=== PATIENT | female | born 1990 | race Caucasian/White ===

== ENCOUNTER 2016-10-11 22:58 | Emergency (ER) | payer OTHER ==
--- NOTE | 2016-10-12 00:58 | ED NURSING NOTES ---
Clinical Report - Nurses [facility] [address] [place] [address] 10/11/2016 22:59 Patient: ARI SANTANA TRIAGE Triage time 23:Oct 11 2016. Acuity: LEVEL 3. Chief Complaint: RIGHT LOWER TOOTHACHE. Alert. MARY JANE COMA SCORE: [place] Coma Scale: 15- eyes open spontaneously (4); best verbal response- oriented x 4 (5); best motor response- obeys commands (6). --23:22 Leroy David R.N. 23:06 10/11/16. BP: 123/82. HR: 86. RR: 16. O2 saturation: 97% on room air. Temp: 98.2 F (oral). Pain level now: 9/10. Additional comments: Facial Pain. --23:22 Leroy David R.N. Weight: 63.5 kg stated. Height/Length: 65 inches Per Patient. BMI: 23.3. --23:08 Leroy David R.N. Medications Wellbutrin Oral. --23:12 Leroy David R.N. Levothyroxine Sodium Oral (Not taking this Rx right now and hasn't taken any for weeks. Pt states that her thyroid function is normal.). --23:13 Leroy David R.N. Allergies None. --23:15 Leroy David R.N. Medication/allergy information source: the patient and patient's family. --23:22 Leroy David R.N. History Arrived by private vehicle. Historian: spouse and patient. Accompanied by spouse. Primary physician (Jean-Paul Griggs [facility]). ( (R) Facial Pain from an infected tooth in the Right Lower Jaw.). Onset. (Tooth pain started about one week ago according to her .). She has had moderate right-sided facial pain. 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 PAST MEDICAL HX: Last normal menstrual period was 2 weeks ago. Denies current . SOCIAL HX: Never smoker. Alcohol use; consumes one glass of wine weekly. No drug use. No infectious disease exposure. ABUSE ASSESSMENT: No report of abuse. FALL RISK ASSESSMENT: Fall risk assessment completed. No fall risk identified. NUTRITIONAL RISK ASSESSMENT: The nutritional risk assessment revealed no deficiencies. FUNCTIONAL ASSESSMENT: Functional assessment: no impairments noted. LEARNING NEEDS ASSESSMENT: The learning needs assessment revealed no barriers. SKIN INTEGRITY ASSESSMENT: Skin integrity risk assessment completed. No skin integrity risk identified. --23:22 Leroy David R.N. PROBLEMS: Sick Contact. Head Injury. Headache. Migraine Headache. --23:15 Leroy David R.N. ADDITIONAL SURGERIES: Appendectomy. --23:15 Leroy David R.N. Interventions ID band on patient. To treatment room. --23:22 Leroy David R.N. PHYSICAL ASSESSMENT Ambulatory to room. GENERAL / NEURO / PSYCH: Appears in pain. The patient is disoriented (Lethargic affect). HEENT: ( (R) Facial Pain). Mucous membranes are pink. RESPIRATORY: Respirations not labored. CVS: Capillary refill less than 2 seconds. SKIN: Skin is warm and dry. Normal skin turgor. --23:24 Leroy David R.N. NURSING PROGRESS NOTES Patient gowned. Reassurance given to the patient and patient's family. Patient identifiers checked. Call light placed in reach. Side rails up x 2. Bed placed in lowest position. Brakes of bed on. Patient ready for evaluation- chart flagged and ED physician notified. --23:24 Leroy David R.N. DISPOSITION / DISCHARGE Condition at departure: stable. No learning barriers present. Discharge instructions provided and reviewed with the patient. Reviewed medication(s) side effects, precautions, dosing and course information. Prescription(s) given to the parent. Patient verbalized understanding. Written instructions provided in Japanese. The patient was discharged by the physician. She was discharged home and accompanied by spouse. She left the Emergency Department ambulatory and via private vehicle. Spouse driving. --01:06 Sheriff Diaz R.N. 01:10/12/16. BP: 105/69. HR: 76. RR: 18. O2 saturation: 99%. Temp: 97.7 F. --01:06 Sheriff Diaz R.N. Locked/Released at 10/12/2016 1:07 by Sheriff Diza R.N.
--- NOTE | 2016-10-12 00:58 | ED NURSING NOTES ---
Clinical Report - Nurses [facility] [address] [place] [address] 10/11/2016 22:59 Patient: ARI SANTANA TRIAGE Triage time 23:Oct 11 2016. Acuity: LEVEL 3. Chief Complaint: RIGHT LOWER TOOTHACHE. Alert. MARY JANE COMA SCORE: [place] Coma Scale: 15- eyes open spontaneously (4); best verbal response- oriented x 4 (5); best motor response- obeys commands (6). --23:22 Leroy David R.N. 23:06 10/11/16. BP: 123/82. HR: 86. RR: 16. O2 saturation: 97% on room air. Temp: 98.2 F (oral). Pain level now: 9/10. Additional comments: Facial Pain. --23:22 Leroy David R.N. Weight: 63.5 kg stated. Height/Length: 65 inches Per Patient. BMI: 23.3. --23:08 Leroy David R.N. Medications Wellbutrin Oral. --23:12 Leroy David R.N. Levothyroxine Sodium Oral (Not taking this Rx right now and hasn't taken any for weeks. Pt states that her thyroid function is normal.). --23:13 Leroy David R.N. Allergies None. --23:15 Leroy David R.N. Medication/allergy information source: the patient and patient's family. --23:22 Leroy David R.N. History Arrived by private vehicle. Historian: spouse and patient. Accompanied by spouse. Primary physician (Jean-Paul Griggs [facility]). ( (R) Facial Pain from an infected tooth in the Right Lower Jaw.). Onset. (Tooth pain started about one week ago according to her .). She has had moderate right-sided facial pain. 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 PAST MEDICAL HX: Last normal menstrual period was 2 weeks ago. Denies current . SOCIAL HX: Never smoker. Alcohol use; consumes one glass of wine weekly. No drug use. No infectious disease exposure. ABUSE ASSESSMENT: No report of abuse. FALL RISK ASSESSMENT: Fall risk assessment completed. No fall risk identified. NUTRITIONAL RISK ASSESSMENT: The nutritional risk assessment revealed no deficiencies. FUNCTIONAL ASSESSMENT: Functional assessment: no impairments noted. LEARNING NEEDS ASSESSMENT: The learning needs assessment revealed no barriers. SKIN INTEGRITY ASSESSMENT: Skin integrity risk assessment completed. No skin integrity risk identified. --23:22 Leroy David R.N. PROBLEMS: Sick Contact. Head Injury. Headache. Migraine Headache. --23:15 Leroy David R.N. ADDITIONAL SURGERIES: Appendectomy. --23:15 Leroy David R.N. Interventions ID band on patient. To treatment room. --23:22 Leroy David R.N. PHYSICAL ASSESSMENT Ambulatory to room. GENERAL / NEURO / PSYCH: Appears in pain. The patient is disoriented (Lethargic affect). HEENT: ( (R) Facial Pain). Mucous membranes are pink. RESPIRATORY: Respirations not labored. CVS: Capillary refill less than 2 seconds. SKIN: Skin is warm and dry. Normal skin turgor. --23:24 Leroy David R.N. NURSING PROGRESS NOTES Patient gowned. Reassurance given to the patient and patient's family. Patient identifiers checked. Call light placed in reach. Side rails up x 2. Bed placed in lowest position. Brakes of bed on. Patient ready for evaluation- chart flagged and ED physician notified. --23:24 Leroy David R.N. DISPOSITION / DISCHARGE Condition at departure: stable. No learning barriers present. Discharge instructions provided and reviewed with the patient. Reviewed medication(s) side effects, precautions, dosing and course information. Prescription(s) given to the parent. Patient verbalized understanding. Written instructions provided in Korean. The patient was discharged by the physician. She was discharged home and accompanied by spouse. She left the Emergency Department ambulatory and via private vehicle. Spouse driving. --01:06 Sheriff Diaz R.N. 01:10/12/16. BP: 105/69. HR: 76. RR: 18. O2 saturation: 99%. Temp: 97.7 F. --01:06 Sheriff Diaz R.N. Locked/Released at 10/12/2016 1:07 by Sheriff Diaz R.N.
--- NOTE | 2016-10-12 00:58 | ED CLINICAL REPORT ---
Clinical Report - Physicians/Mid Levels [facility] [address] [place] [address] 10/11/2016 22:59 Patient: ARI SANTANA Time Seen: 23:30; initial patient contact. Arrived- By private vehicle. Historian- patient. HISTORY OF PRESENT ILLNESS Chief Complaint: DENTAL PAIN. This started about 1 week ago and is still present (persistent). It was gradual in onset. Pain described as moderate. The patient has had toothache, jaw pain and facial pain. No swollen jaw or face. Similar symptoms previously: None. Recent medical care: Not recently seen/assessed. REVIEW OF SYSTEMS No fever, difficulty breathing, nausea, skin rash or vomiting. All systems otherwise negative, except as recorded above. PAST HISTORY Sick Contact. Head Injury. Headache. Migraine Headache. ADDITIONAL SURGERIES: Appendectomy. SOCIAL HISTORY Never smoker. Occasional alcohol use. No drug use. ADDITIONAL NOTES The nursing notes have been reviewed. PHYSICAL EXAM Vital Signs: 10/11/2016 23:06 BP: 123/82. HR: 86. RR: 16. O2 saturation: 97%. Temp: 98.2 F. Pain level now: 9/10. Have been reviewed as normal. Appearance: Patient in mild distress. Head: Normal external inspection. ENT: Moderate dental tenderness of a single tooth (lower right second premolar). Pharynx normal. Lips normal. Gums normal. No trismus present. No dental decay. Neck: No adenopathy. Neuro: Oriented X 3. PROGRESS AND PROCEDURES Dental Nerve Block: Time: 00:57. Per protocol, time-out completed immediately before the procedure. Inferior Alveolar Block. Procedure performed on the right side. Landmarks were identified. Topical anesthetic applied. Total volume of 5 mL 2% Lidocaine and 0.5% Marcaine infiltrated using a 25-gauge needle. Patient cooperative during procedure. No complications encountered. Excellent anesthesia achieved. Procedure repeated on opposite side. Course of Care: 04:59. Much better after dental block. Evaluation after repeat exam. Disposition: Discharged home in good and improved condition. Condition: good. CLINICAL IMPRESSION Moderate dental pain. INSTRUCTIONS Apply ice for 20 minutes four times a day until better. Don't apply ice directly to skin. Prescription Medications: Hydrocodone/APAP 5mg / 325mg: take 1 orally every 6 hours as needed for pain. Dispense fifteen (15). No refill. Diclofenac 50 mg tablets: take 1 tablet orally every 8 hours as needed for pain. Dispense thirty (30). No refill. Follow-up: Follow up with your doctor in about three days. Call for an appointment. Screening today revealed the patient's blood pressure to be in the pre-hypertensive range. The patient should follow up with a primary care provider for blood pressure management. (Electronically signed by Junito Guerrero Dr. 10/12/2016 4:59)
--- NOTE | 2016-10-12 00:58 | ED CLINICAL REPORT ---
Clinical Report - Physicians/Mid Levels [facility] [address] [place] [address] 10/11/2016 22:59 Patient: ARI SANTANA Time Seen: 23:30; initial patient contact. Arrived- By private vehicle. Historian- patient. HISTORY OF PRESENT ILLNESS Chief Complaint: DENTAL PAIN. This started about 1 week ago and is still present (persistent). It was gradual in onset. Pain described as moderate. The patient has had toothache, jaw pain and facial pain. No swollen jaw or face. Similar symptoms previously: None. Recent medical care: Not recently seen/assessed. REVIEW OF SYSTEMS No fever, difficulty breathing, nausea, skin rash or vomiting. All systems otherwise negative, except as recorded above. PAST HISTORY Sick Contact. Head Injury. Headache. Migraine Headache. ADDITIONAL SURGERIES: Appendectomy. SOCIAL HISTORY Never smoker. Occasional alcohol use. No drug use. ADDITIONAL NOTES The nursing notes have been reviewed. PHYSICAL EXAM Vital Signs: 10/11/2016 23:06 BP: 123/82. HR: 86. RR: 16. O2 saturation: 97%. Temp: 98.2 F. Pain level now: 9/10. Have been reviewed as normal. Appearance: Patient in mild distress. Head: Normal external inspection. ENT: Moderate dental tenderness of a single tooth (lower right second premolar). Pharynx normal. Lips normal. Gums normal. No trismus present. No dental decay. Neck: No adenopathy. Neuro: Oriented X 3. PROGRESS AND PROCEDURES Dental Nerve Block: Time: 00:57. Per protocol, time-out completed immediately before the procedure. Inferior Alveolar Block. Procedure performed on the right side. Landmarks were identified. Topical anesthetic applied. Total volume of 5 mL 2% Lidocaine and 0.5% Marcaine infiltrated using a 25-gauge needle. Patient cooperative during procedure. No complications encountered. Excellent anesthesia achieved. Procedure repeated on opposite side. Course of Care: 04:59. Much better after dental block. Evaluation after repeat exam. Disposition: Discharged home in good and improved condition. Condition: good. CLINICAL IMPRESSION Moderate dental pain. INSTRUCTIONS Apply ice for 20 minutes four times a day until better. Don't apply ice directly to skin. Prescription Medications: Hydrocodone/APAP 5mg / 325mg: take 1 orally every 6 hours as needed for pain. Dispense fifteen (15). No refill. Diclofenac 50 mg tablets: take 1 tablet orally every 8 hours as needed for pain. Dispense thirty (30). No refill. Follow-up: Follow up with your doctor in about three days. Call for an appointment. Screening today revealed the patient's blood pressure to be in the pre-hypertensive range. The patient should follow up with a primary care provider for blood pressure management. (Electronically signed by Junito Guerrero Dr. 10/12/2016 4:59)
--- NOTE | 2016-10-12 04:59 | ED MAR SUMMARY ---
..... Medication Administration Record [facility] [address] [place], [place] [id number] Patient: ARI SANTANA Visit ID: [id number] 26y, F Weight: 63.5 kg Height/Length: 65 in BMI: 23.3 ALLERGIES: None
--- NOTE | 2016-10-12 04:59 | ED MED RECONCILIATION SUMMARY ---
Patient: ARI SANTANA Medication Reconciliation Report [facility] VisitID: [id number] [address] [place] [address] 26y, F Registration Date/Time: 10/11/2016 Weight: 63.5 kg Height/Length: 65 in. BMI: 23.3 ALLERGIES: None The patient's Home Medications are listed below: THE FOLLOWING MEDICATIONS NEED TO BE RECONCILED: Levothyroxine Sodium Oral, Not taking this Rx right now and hasn't taken any for weeks. Pt states that her thyroid function is normal. Wellbutrin Oral The source(s) of the original Home Medication information: patient patient's family member The following Medications were given to the patient in the Emergency Department: None. The following Medications were prescribed to the patient: Hydrocodone/APAP 5mg / 325mg: take 1 orally every 6 hours as needed for pain. Dispense fifteen (15). No refill. -- Junito Guerrero Dr. Diclofenac 50 mg tablets: take 1 tablet orally every 8 hours as needed for pain. Dispense thirty (30). No refill. -- Junito Guerrero Dr.
--- NOTE | 2016-10-12 04:59 | ED DISCHARGE INSTRUCTIONS ---
Patient: ARI SANTANA General Instructions [facility] VisitID: [id number] [place] [address] 26y, F Registration Date/Time: 10/11/2016 Moderate dental pain. INSTRUCTIONS Apply ice for 20 minutes four times a day until better. Don't apply ice directly to skin. Prescription Medications: Hydrocodone/APAP 5mg / 325mg: take 1 orally every 6 hours as needed for pain. Dispense fifteen (15). No refill. Diclofenac 50 mg tablets: take 1 tablet orally every 8 hours as needed for pain. Dispense thirty (30). No refill. Follow-up: Follow up with your doctor in about three days. Call for an appointment. Screening today revealed the patient's blood pressure to be in the pre-hypertensive range. The patient should follow up with a primary care provider for blood pressure management. ADDITIONAL INFORMATION Dental Pain A crack or cavity in the tooth, which exposes the sensitive inner area of the tooth can cause tooth pain. An infection in the gum or the root of the tooth can cause pain and swelling. The pain is often made worse by drinking hot or cold fluids, or biting on hard foods. Pain may spread from the tooth to the ear or jaw on the same side. Home Care: Avoid hot and cold foods and liquids since your tooth may be sensitive to temperature changes. If your tooth is chipped or cracked, or if there is a large open cavity, apply OIL OF CLOVES (available qpyx-ape-ycadelm in drug stores) directly to the tooth to reduce pain. Some pharmacies carry an conx-iwb-certkoj "toothache kit." This contains a paste, which can be applied over the exposed tooth to decrease sensitivity. A cold pack on your jaw over the sore area may help reduce pain. You may use acetaminophen (Tylenol) or ibuprofen (Motrin, Advil) to control pain, unless another medicine was prescribed. [ NOTE: If you have chronic liver or kidney disease or ever had a stomach ulcer or GI bleeding, talk with your doctor before using these medicines.] If you have signs of an infection, an antibiotic will be given. Take it as directed. Follow-Up as directed with a dentist. Your pain may go away with the treatment given. However, only a dentist can fully evaluate and treat the cause and prevent the pain from coming back again. TOOTHACHE IS A SIGN OF DISEASE IN YOUR TOOTH AND SHOULD BE EXAMINED AND TREATED BY A DENTIST. Get Prompt Medical Attention if any of the following occur: Your face becomes swollen or red Pain worsens or spreads to the neck Fever over 100.4 F (38.0 C) Unusual drowsiness; headache or stiff neck; weakness or fainting Pus drains from the tooth Difficulty swallowing or breathing Hydrocodone Bitartrate, Acetaminophen Oral tablet What is this medicine? ACETAMINOPHEN; HYDROCODONE (a set a VICK stan fen; libby droe KOE done) is a pain reliever. It is used to treat mild to moderate pain. How should I use this medicine? Take this medicine by mouth. Swallow it with a full glass of water. Follow the directions on the prescription label. If the medicine upsets your stomach, take the medicine with food or milk. Do not take more than you are told to take. Talk to your etl developer regarding the use of this medicine in children. This medicine is not approved for use in children. What side effects may I notice from receiving this medicine? Side effects that you should report to your doctor or health body care manager as soon as possible: allergic reactions like skin rash, itching or hives, swelling of the face, lips, or tongue breathing problems confusion feeling faint or lightheaded, falls stomach pain yellowing of the eyes or skin Side effects that usually do not require medical attention (report to your doctor or health body care manager if they continue or are bothersome): nausea, vomiting stomach upset What may interact with this medicine? alcohol antihistamines isoniazid medicines for depression, anxiety, or psychotic disturbances medicines for sleep muscle relaxants naltrexone narcotic medicines (opiates) for pain phenobarbital ritonavir tramadol What if I miss a dose? If you miss a dose, take it as soon as you can. If it is almost time for your next dose, take only that dose. Do not take double or extra doses. Where should I keep my medicine? Keep out of the reach of children. This medicine can be abused. Keep your medicine in a safe place to protect it from theft. Do not share this medicine with anyone. Selling or giving away this medicine is dangerous and against the law. Store at room temperature between 15 and 30 degrees C (59 and 86 degrees F). Protect from light. Keep container tightly closed. Throw away any unused medicine after the expiration date. Discard unused medicine and used packaging carefully. Pets and children can be harmed if they find used or lost packages. What should I tell my health care provider before I take this medicine? They need to know if you have any of these conditions: brain tumor Crohn's disease, inflammatory bowel disease, or ulcerative colitis drink more than 3 alcohol-containing drinks per day drug abuse or addiction head injury heart or circulation problems kidney disease or problems going to the bathroom liver disease lung disease, asthma, or breathing problems an unusual or allergic reaction to acetaminophen, hydrocodone, other opioid analgesics, other medicines, foods, dyes, or preservatives or trying to get breast-feeding What should I watch for while using this medicine? Tell your doctor or health body care manager if your pain does not go away, if it gets worse, or if you have new or a different type of pain. You may develop tolerance to the medicine. Tolerance means that you will need a higher dose of the medicine for pain relief. Tolerance is normal and is expected if you take the medicine for a long time. Do not suddenly stop taking your medicine because you may develop a severe reaction. Your body becomes used to the medicine. This does NOT mean you are addicted. Addiction is a behavior related to getting and using a drug for a non-medical reason. If you have pain, you have a medical reason to take pain medicine. Your doctor will tell you how much medicine to take. If your doctor wants you to stop the medicine, the dose will be slowly lowered over time to avoid any side effects. You may get drowsy or dizzy when you first start taking the medicine or change doses. Do not drive, use machinery, or do anything that may be dangerous until you know how the medicine affects you. Stand or sit up slowly. There are different types of narcotic medicines (opiates) for pain. If you take more than one type at the same time, you may have more side effects. Give your health care provider a list of all medicines you use. Your doctor will tell you how much medicine to take. Do not take more medicine than directed. Call emergency for help if you have problems breathing. The medicine will cause constipation. Try to have a bowel movement at least every 2 to 3 days. If you do not have a bowel movement for 3 days, call your doctor or health body care manager. Too much acetaminophen can be very dangerous. Do not take Tylenol (acetaminophen) or medicines that contain acetaminophen with this medicine. Many non-prescription medicines contain acetaminophen. Always read the labels carefully. You have been given the following additional information: Dental Pain Hydrocodone Bitartrate, Acetaminophen Oral tablet (Electronically signed by Junito Guerrero Dr. 10/12/2016 4:59)
--- NOTE | 2016-10-12 04:59 | ED MAR SUMMARY ---
..... Medication Administration Record [facility] [address] [place], [place] [id number] Patient: ARI SANTANA Visit ID: [id number] 26y, F Weight: 63.5 kg Height/Length: 65 in BMI: 23.3 ALLERGIES: None
--- NOTE | 2016-10-12 04:59 | ED MED RECONCILIATION SUMMARY ---
Patient: ARI SANTANA Medication Reconciliation Report [facility] VisitID: [id number] [address] [place] [address] 26y, F Registration Date/Time: 10/11/2016 Weight: 63.5 kg Height/Length: 65 in. BMI: 23.3 ALLERGIES: None The patient's Home Medications are listed below: THE FOLLOWING MEDICATIONS NEED TO BE RECONCILED: Levothyroxine Sodium Oral, Not taking this Rx right now and hasn't taken any for weeks. Pt states that her thyroid function is normal. Wellbutrin Oral The source(s) of the original Home Medication information: patient patient's family member The following Medications were given to the patient in the Emergency Department: None. The following Medications were prescribed to the patient: Hydrocodone/APAP 5mg / 325mg: take 1 orally every 6 hours as needed for pain. Dispense fifteen (15). No refill. -- Junito Guerrero Dr. Diclofenac 50 mg tablets: take 1 tablet orally every 8 hours as needed for pain. Dispense thirty (30). No refill. -- Junito Guerrero Dr.
--- NOTE | 2016-10-12 04:59 | ED DISCHARGE INSTRUCTIONS ---
Patient: ARI SANTANA General Instructions [facility] VisitID: [id number] [place] [address] 26y, F Registration Date/Time: 10/11/2016 Moderate dental pain. INSTRUCTIONS Apply ice for 20 minutes four times a day until better. Don't apply ice directly to skin. Prescription Medications: Hydrocodone/APAP 5mg / 325mg: take 1 orally every 6 hours as needed for pain. Dispense fifteen (15). No refill. Diclofenac 50 mg tablets: take 1 tablet orally every 8 hours as needed for pain. Dispense thirty (30). No refill. Follow-up: Follow up with your doctor in about three days. Call for an appointment. Screening today revealed the patient's blood pressure to be in the pre-hypertensive range. The patient should follow up with a primary care provider for blood pressure management. ADDITIONAL INFORMATION Dental Pain A crack or cavity in the tooth, which exposes the sensitive inner area of the tooth can cause tooth pain. An infection in the gum or the root of the tooth can cause pain and swelling. The pain is often made worse by drinking hot or cold fluids, or biting on hard foods. Pain may spread from the tooth to the ear or jaw on the same side. Home Care: Avoid hot and cold foods and liquids since your tooth may be sensitive to temperature changes. If your tooth is chipped or cracked, or if there is a large open cavity, apply OIL OF CLOVES (available jans-uwc-tywdstz in drug stores) directly to the tooth to reduce pain. Some pharmacies carry an dtng-ctk-apahxgf "toothache kit." This contains a paste, which can be applied over the exposed tooth to decrease sensitivity. A cold pack on your jaw over the sore area may help reduce pain. You may use acetaminophen (Tylenol) or ibuprofen (Motrin, Advil) to control pain, unless another medicine was prescribed. [ NOTE: If you have chronic liver or kidney disease or ever had a stomach ulcer or GI bleeding, talk with your doctor before using these medicines.] If you have signs of an infection, an antibiotic will be given. Take it as directed. Follow-Up as directed with a dentist. Your pain may go away with the treatment given. However, only a dentist can fully evaluate and treat the cause and prevent the pain from coming back again. TOOTHACHE IS A SIGN OF DISEASE IN YOUR TOOTH AND SHOULD BE EXAMINED AND TREATED BY A DENTIST. Get Prompt Medical Attention if any of the following occur: Your face becomes swollen or red Pain worsens or spreads to the neck Fever over 100.4 F (38.0 C) Unusual drowsiness; headache or stiff neck; weakness or fainting Pus drains from the tooth Difficulty swallowing or breathing Hydrocodone Bitartrate, Acetaminophen Oral tablet What is this medicine? ACETAMINOPHEN; HYDROCODONE (a set a VICK stan fen; libby droe KOE done) is a pain reliever. It is used to treat mild to moderate pain. How should I use this medicine? Take this medicine by mouth. Swallow it with a full glass of water. Follow the directions on the prescription label. If the medicine upsets your stomach, take the medicine with food or milk. Do not take more than you are told to take. Talk to your tipping machine operator automatic regarding the use of this medicine in children. This medicine is not approved for use in children. What side effects may I notice from receiving this medicine? Side effects that you should report to your doctor or health child care group leader as soon as possible: allergic reactions like skin rash, itching or hives, swelling of the face, lips, or tongue breathing problems confusion feeling faint or lightheaded, falls stomach pain yellowing of the eyes or skin Side effects that usually do not require medical attention (report to your doctor or health child care group leader if they continue or are bothersome): nausea, vomiting stomach upset What may interact with this medicine? alcohol antihistamines isoniazid medicines for depression, anxiety, or psychotic disturbances medicines for sleep muscle relaxants naltrexone narcotic medicines (opiates) for pain phenobarbital ritonavir tramadol What if I miss a dose? If you miss a dose, take it as soon as you can. If it is almost time for your next dose, take only that dose. Do not take double or extra doses. Where should I keep my medicine? Keep out of the reach of children. This medicine can be abused. Keep your medicine in a safe place to protect it from theft. Do not share this medicine with anyone. Selling or giving away this medicine is dangerous and against the law. Store at room temperature between 15 and 30 degrees C (59 and 86 degrees F). Protect from light. Keep container tightly closed. Throw away any unused medicine after the expiration date. Discard unused medicine and used packaging carefully. Pets and children can be harmed if they find used or lost packages. What should I tell my health care provider before I take this medicine? They need to know if you have any of these conditions: brain tumor Crohn's disease, inflammatory bowel disease, or ulcerative colitis drink more than 3 alcohol-containing drinks per day drug abuse or addiction head injury heart or circulation problems kidney disease or problems going to the bathroom liver disease lung disease, asthma, or breathing problems an unusual or allergic reaction to acetaminophen, hydrocodone, other opioid analgesics, other medicines, foods, dyes, or preservatives or trying to get breast-feeding What should I watch for while using this medicine? Tell your doctor or health child care group leader if your pain does not go away, if it gets worse, or if you have new or a different type of pain. You may develop tolerance to the medicine. Tolerance means that you will need a higher dose of the medicine for pain relief. Tolerance is normal and is expected if you take the medicine for a long time. Do not suddenly stop taking your medicine because you may develop a severe reaction. Your body becomes used to the medicine. This does NOT mean you are addicted. Addiction is a behavior related to getting and using a drug for a non-medical reason. If you have pain, you have a medical reason to take pain medicine. Your doctor will tell you how much medicine to take. If your doctor wants you to stop the medicine, the dose will be slowly lowered over time to avoid any side effects. You may get drowsy or dizzy when you first start taking the medicine or change doses. Do not drive, use machinery, or do anything that may be dangerous until you know how the medicine affects you. Stand or sit up slowly. There are different types of narcotic medicines (opiates) for pain. If you take more than one type at the same time, you may have more side effects. Give your health care provider a list of all medicines you use. Your doctor will tell you how much medicine to take. Do not take more medicine than directed. Call emergency for help if you have problems breathing. The medicine will cause constipation. Try to have a bowel movement at least every 2 to 3 days. If you do not have a bowel movement for 3 days, call your doctor or health child care group leader. Too much acetaminophen can be very dangerous. Do not take Tylenol (acetaminophen) or medicines that contain acetaminophen with this medicine. Many non-prescription medicines contain acetaminophen. Always read the labels carefully. You have been given the following additional information: Dental Pain Hydrocodone Bitartrate, Acetaminophen Oral tablet (Electronically signed by Junito Guerrero Dr. 10/12/2016 4:59)
== END 2016-10-12 01:07 | disposition home or self-care (01) ==
LOC: ED SRH 22:58
DX: K08.89 Other specified disorders of teeth and supporting structures (principal)

== ENCOUNTER 2016-11-07 22:54 | Emergency (ER) | payer OTHER ==
--- NOTE | 2016-11-08 01:19 | ED ORDER SUMMARY ---
..... Patient: ARI SANTANA OrderSheet [facility] VisitID: [id number] [address] [place] [address] 26y, F Registration Date/Time: 11/07/2016 ORDER SHEET Weight: 61.2 kg Allergies: None GENERAL ORDERS: UA-Culture if indicated Urgent (23:31 11/07/2016 Peter R.NOsvaldo verbal order read back to Steven SOLER) (23:31 Peter R.NOsvaldo) Lumbar Spine 2 or 3V Urgent (00:00 11/08/2016 Steven SOLER) (Ack 0:03 IJurca ER Tech1) (0:35 Denae) Urine Urgent (00:00 11/08/2016 Steven SOLER) (Ack 0:03 IJurca ER Tech1) (0:22 Maricarmen ER Shower Maid) MEDICATION ORDERS: IV FLUIDS: ORDER SHEET NOTES: [Electronically signed by Lea Tom R.N. (01:38 11/08/2016)] [Electronically signed by Ramsey Freeman MD (18:17 11/27/2016)] [Electronically locked/signed by Lea Tom R.N. (:38 11/08/2016)]
--- NOTE | 2016-11-08 01:19 | ED ORDER SUMMARY ---
..... Patient: ARI SANTANA OrderSheet [facility] VisitID: [id number] [address] [place] [address] 26y, F Registration Date/Time: 11/07/2016 ORDER SHEET Weight: 61.2 kg Allergies: None GENERAL ORDERS: UA-Culture if indicated Urgent (23:31 11/07/2016 Peter R.NOsvaldo verbal order read back to Steven SOLER) (23:31 Peter R.NOsvaldo) Lumbar Spine 2 or 3V Urgent (00:00 11/08/2016 Steven SOLER) (Ack 0:03 IJurca ER Tech1) (0:35 Denae) Urine Urgent (00:00 11/08/2016 Steven SOLER) (Ack 0:03 IJurca ER Tech1) (0:22 Maricarmen ER Auto Specialty Services Manager) MEDICATION ORDERS: IV FLUIDS: ORDER SHEET NOTES: [Electronically signed by Lea Tom R.N. (01:38 11/08/2016)] [Electronically signed by Ramsey Freeman MD (18:17 11/27/2016)] [Electronically locked/signed by Lea Tom R.N. (:38 11/08/2016)]
--- NOTE | 2016-11-08 01:19 | ED CLINICAL REPORT ---
Clinical Report - Physicians/Mid Levels [facility] [address] [place] [address] 11/07/2016 22:54 Patient: ARI SANTANA Arrived- By private vehicle. Historian- patient. HISTORY OF PRESENT ILLNESS Chief Complaint: BACK PAIN. It is described as being severe and in the area of the lower lumbar spine and radiating to the right lower extremity. The quality is noted to be aching, "pain" and similar to prior episodes. Onset- about 1 month ago and it is still present. It was gradual in onset and has been constant and waxing/waning. No bladder dysfunction, bowel dysfunction or sensory loss. Patient denies an injury. Similar symptoms previously: Chronically. REVIEW OF SYSTEMS Last normal menstrual period was 2 weeks ago. No chills, fever, sweats, calf pain or chest pain. No cough, difficulty breathing, pedal edema, palpitations or abdominal pain. No constipation, diarrhea, nausea, vomiting or urinary problems. All systems otherwise negative, except as recorded above. SOCIAL HISTORY Never smoker. No alcohol use or drug use. FAMILY HISTORY Denies family medical history. ADDITIONAL NOTES The nursing notes have been reviewed. PHYSICAL EXAM Vital Signs: 11/07/2016 23:13 BP: 111/76. HR: 82. RR: 18. O2 saturation: 100%. Temp: 98.7 F. Pain level now: 8/10. Appearance: Alert. Eyes: Pupils equal, round and reactive to light. ENT: Pharynx normal. Neck: Normal inspection. Neck nontender. Painless ROM. No vertebral tenderness. CVS: Heart sounds normal. Respiratory: No respiratory distress. Breath sounds normal. Abdomen: No visible injury. Soft and nontender. Bowel sounds normal. No organomegaly. No mass. Back: Moderate muscle spasm of the left posterior back. Soft tissue tenderness. Moderately limited ROM in the back- in the lumbar spine: decreased flexion, extension, right lateral bending, left lateral bending and rotation to the right and left. No vertebral point tenderness. Skin: Skin warm and dry. Normal skin color. Normal skin turgor. Extremities: Extremities exhibit normal ROM. Neuro: No motor deficit. No sensory deficit. LABS, X-RAYS, AND EKG LS-Spine X-rays: (IMPRESSION: 1. Mild L2-3 and L3-4 disc space narrowing.). The X-rays were interpreted by the radiologist and contemporaneously by me. Laboratory Tests: Urine: (KAYLA: 11/08/2016 00:00) ( MsgRcvd 11/08/2016 00:08) Final results Test Result Flag Units (Reference) URINE NEGATIVE UA-Culture if indicated: (KAYLA: 11/07/2016 23:20) ( MsgRcvd 11/07/2016 23:46) Final results Test Result Flag Units (Reference) URINE COLOR YELLOW URINE APPEARANCE CLEAR URINE GLUCOSE NEGATIVE (NEGATIVE) URINE BILIRUBIN NEGATIVE (NEGATIVE) URINE KETONE TRACE (NEGATIVE) URINE SPECIFIC GRAVITY 1.015 (1.010-1.030) URINE PH 8.5 H (5.0-8.0) URINE PROTEIN 2+ (NEGATIVE) URINE UROBILINOGEN 2.0 EU/dL (0.2-1.0) The urobilinogen reagent area may react with interferingsubstances known to react with Boo's reagent such asp-aminosalicylic acid and sulfonamides. Atypical colorreactions may be obtained in the presence of highconcentrations of p-aminobenzoic acid. The absence ofurobilinogen cannot be determined with this test. URINE NITRITE NEGATIVE (NEGATIVE) URINE BLOOD NEGATIVE (NEGATIVE) URINE LEUK ESTERASE NEGATIVE (NEGATIVE) URINE RBC 0-1 rbc/hpf (0-1) URINE WBC 0-1 wbc/hpf (0-1) URINE EPITHELIAL CELLS 1-3 EPI/hpf (0-5) URINE BACTERIA TRACE (<1+) (NONE SEEN) URINE COMMENT CULT NOT INDICATED URINE CULTURES ARE SET-UP BASED ON THE FOLLOWING CRITERIA:POSITIVE NITRITEPOSITIVE LEUKOCYTE ESTERASEGREATER THAN 10 WHITE BLOOD CELLSMODERATE (2+) OR GREATER BACTERIA . PROGRESS AND PROCEDURES Course of Care: Patient is stable. Patient/family counseled. Old medical records reviewed. Disposition: Discharged. Condition: stable. CLINICAL IMPRESSION Lumbar back pain. Sciatica present on the right. INSTRUCTIONS Apply ice for 20 minutes four times a day until better. Don't apply ice directly to skin and don't use while asleep. No driving or operating machinery while taking medication. Warnings: GENERAL WARNINGS: Return or contact your physician immediately if your condition worsens or changes unexpectedly, if not improving as expected, or if other problems arise. Prescription Medications: Ibuprofen 600mg tablets: take 1 tablet orally every 8 hours as needed for pain. Dispense thirty (30). No refills. Flexeril 10 mg: Take 1 orally every 8 hours as needed for muscle spasm. Dispense twenty (20). No refills. Substitution is permissible. Follow-up: Follow up with your doctor in five days. Call for the next available appointment. Understanding of the discharge instructions verbalized by patient. (Electronically signed by Ramsey Freeman MD 11/27/2016 18:17)
--- NOTE | 2016-11-08 01:19 | ED NURSING NOTES ---
Clinical Report - Nurses [facility] [address] [place] [address] 11/07/2016 22:54 Patient: ARI SANTANA TRIAGE Triage time 23:Nov 07 2016. Acuity: LEVEL 3. Chief Complaint: ((R) Flank Pain). Alert. LAURA COMA SCORE: Laura Coma Scale: 15- eyes open spontaneously (4); best verbal response- oriented x 4 (5); best motor response- obeys commands (6). --23:26 Leroy David R.N. 23:13 11/07/16. BP: 111/76. HR: 82. RR: 18. O2 saturation: 100% on room air. Temp: 98.7 F. Pain level now: 12/25. --23:26 Leroy David R.N. Weight: 61.2 kg. Height/Length: 63 inches Per Patient. BMI: 23.9. --23:23 Leroy David R.N. Medications LamoTRIgine Oral (Tablet Dispersible 25 mg) 1 tablet, 2 x daily. --23:20 Leroy David R.N. Medication/allergy information source: the patient. --23:26 Leroy David R.N. Allergies None. --23:18 Leroy David R.N. History Arrived by private vehicle. Historian: patient. Accompanied by spouse. Primary physician ([place], [place]). ( (R) Flank/Back pain. Pt states that the pain has been going on for a month now, she went to a Chiropractor thinking that it was a back problem, and had adjustments, which didn't help.). Onset. (about 1 month ago). ( N/V). Treatment LOAN COUNSELOR: None. PAST MEDICAL HX: Last normal menstrual period was 2 weeks ago. SOCIAL HX: Never smoker. No alcohol use or drug use. ABUSE ASSESSMENT: No report of abuse. FALL RISK ASSESSMENT: Fall risk assessment completed. No fall risk identified. NUTRITIONAL RISK ASSESSMENT: The nutritional risk assessment revealed no deficiencies. FUNCTIONAL ASSESSMENT: Functional assessment: no impairments noted. LEARNING NEEDS ASSESSMENT: The learning needs assessment revealed no barriers. SKIN INTEGRITY ASSESSMENT: Skin integrity risk assessment completed. No skin integrity risk identified. --23:26 Leroy David R.N. PROBLEMS: Dental Pain. Head Injury. Headache. Migraine Headache. --23:21 Leroy David R.N. ADDITIONAL SURGERIES: Appendectomy. --23:21 Leroy David R.N. Interventions ID band on patient. To treatment room. --23:26 Leroy David R.N. PHYSICAL ASSESSMENT Ambulatory to room. GENERAL / NEURO / PSYCH: Alert. Oriented X 4. Appears in pain. HEENT: No facial asymmetry noted. Mucous membranes are pink. RESPIRATORY: Respirations not labored. CVS: Cardiac rhythm: (RRR). Capillary refill less than 2 seconds. GI / : Abdomen soft and nontender. SKIN: Skin intact. Skin is warm and dry. Normal skin turgor. --23:27 Leroy David R.N. NURSING PROGRESS NOTES Patient gowned. Reassurance given to the patient. Patient identifiers checked. Call light placed in reach. Side rails up. Bed placed in lowest position. Brakes of bed on. Patient ready for evaluation- chart flagged and ED physician notified. --23:27 Leroy David R.N. Care transferred and report received. --00:26 Lea Tom R.N. DISPOSITION / DISCHARGE Condition at departure: improved and stable. No learning barriers present. Discharge instructions provided and reviewed with the patient. Reviewed medication(s) side effects, precautions, dosing and course information. Prescription(s) given to the patient. Patient verbalized understanding. Written instructions provided in Togolese. The patient was discharged home and accompanied by windows systems engineer. She left the Emergency Department ambulatory and via private vehicle. Clinical Counselor driving. --01:38 Lea Tom R.N. 01:37 11/08/16. BP: 114/82. HR: 96. RR: 15. O2 saturation: 97% on room air. Temp: deferred. Leger-Patel pain scale: 2/10. --01:38 Lea Tom R.N. Locked/Released at 11/08/2016 1:38 by Lea Tom R.N.
--- NOTE | 2016-11-08 01:19 | ED NURSING NOTES ---
Clinical Report - Nurses [facility] [address] [place] [address] 11/07/2016 22:54 Patient: ARI SANTANA TRIAGE Triage time 23:Nov 07 2016. Acuity: LEVEL 3. Chief Complaint: ((R) Flank Pain). Alert. LAURA COMA SCORE: Laura Coma Scale: 15- eyes open spontaneously (4); best verbal response- oriented x 4 (5); best motor response- obeys commands (6). --23:26 Leroy David R.N. 23:13 11/07/16. BP: 111/76. HR: 82. RR: 18. O2 saturation: 100% on room air. Temp: 98.7 F. Pain level now: 12/25. --23:26 Leroy David R.N. Weight: 61.2 kg. Height/Length: 63 inches Per Patient. BMI: 23.9. --23:23 Leroy David R.N. Medications LamoTRIgine Oral (Tablet Dispersible 25 mg) 1 tablet, 2 x daily. --23:20 Leroy David R.N. Medication/allergy information source: the patient. --23:26 Leroy David R.N. Allergies None. --23:18 Leroy David R.N. History Arrived by private vehicle. Historian: patient. Accompanied by spouse. Primary physician ([place], [place]). ( (R) Flank/Back pain. Pt states that the pain has been going on for a month now, she went to a Chiropractor thinking that it was a back problem, and had adjustments, which didn't help.). Onset. (about 1 month ago). ( N/V). Treatment DOCUMENTATION LEAD: None. PAST MEDICAL HX: Last normal menstrual period was 2 weeks ago. SOCIAL HX: Never smoker. No alcohol use or drug use. ABUSE ASSESSMENT: No report of abuse. FALL RISK ASSESSMENT: Fall risk assessment completed. No fall risk identified. NUTRITIONAL RISK ASSESSMENT: The nutritional risk assessment revealed no deficiencies. FUNCTIONAL ASSESSMENT: Functional assessment: no impairments noted. LEARNING NEEDS ASSESSMENT: The learning needs assessment revealed no barriers. SKIN INTEGRITY ASSESSMENT: Skin integrity risk assessment completed. No skin integrity risk identified. --23:26 Leroy David R.N. PROBLEMS: Dental Pain. Head Injury. Headache. Migraine Headache. --23:21 Leroy David R.N. ADDITIONAL SURGERIES: Appendectomy. --23:21 Leroy David R.N. Interventions ID band on patient. To treatment room. --23:26 Leroy David R.N. PHYSICAL ASSESSMENT Ambulatory to room. GENERAL / NEURO / PSYCH: Alert. Oriented X 4. Appears in pain. HEENT: No facial asymmetry noted. Mucous membranes are pink. RESPIRATORY: Respirations not labored. CVS: Cardiac rhythm: (RRR). Capillary refill less than 2 seconds. GI / : Abdomen soft and nontender. SKIN: Skin intact. Skin is warm and dry. Normal skin turgor. --23:27 Leroy David R.N. NURSING PROGRESS NOTES Patient gowned. Reassurance given to the patient. Patient identifiers checked. Call light placed in reach. Side rails up. Bed placed in lowest position. Brakes of bed on. Patient ready for evaluation- chart flagged and ED physician notified. --23:27 Leroy David R.N. Care transferred and report received. --00:26 Lea Tom R.N. DISPOSITION / DISCHARGE Condition at departure: improved and stable. No learning barriers present. Discharge instructions provided and reviewed with the patient. Reviewed medication(s) side effects, precautions, dosing and course information. Prescription(s) given to the patient. Patient verbalized understanding. Written instructions provided in Uzbek. The patient was discharged home and accompanied by strategic consultant. She left the Emergency Department ambulatory and via private vehicle. Slot Machine Floor Person driving. --01:38 Lea Tom R.N. 01:37 11/08/16. BP: 114/82. HR: 96. RR: 15. O2 saturation: 97% on room air. Temp: deferred. Leger-Patel pain scale: 2/10. --01:38 Lea Tom R.N. Locked/Released at 11/08/2016 1:38 by Lea Tom R.N.
--- NOTE | 2016-11-08 06:42 | DIAGNOSTIC IMAGING REPORT ---
PROCEDURE: XR LUMBAR SPINE 2 OR 3 VIEWS INDICATION: LOWER BACK PAIN TECHNIQUE: Three views. COMPARISON: None. FINDINGS: Normal alignment without fracture. Mild L3-2 and L3-4 disc space narrowing. IUD in place. IMPRESSION: 1. Mild L2-3 and L3-4 disc space narrowing.
--- NOTE | 2016-11-27 18:17 | ED DISCHARGE INSTRUCTIONS ---
Patient: ARI SANTANA General Instructions [facility] VisitID: [id number] [place] [address] 26y, F Registration Date/Time: 11/07/2016 Lumbar back pain. Sciatica present on the right. INSTRUCTIONS Apply ice for 20 minutes four times a day until better. Don't apply ice directly to skin and don't use while asleep. No driving or operating machinery while taking medication. Warnings: GENERAL WARNINGS: Return or contact your physician immediately if your condition worsens or changes unexpectedly, if not improving as expected, or if other problems arise. Prescription Medications: Ibuprofen 600mg tablets: take 1 tablet orally every 8 hours as needed for pain. Dispense thirty (30). No refills. Flexeril 10 mg: Take 1 orally every 8 hours as needed for muscle spasm. Dispense twenty (20). No refills. Substitution is permissible. Follow-up: Follow up with your doctor in five days. Call for the next available appointment. Understanding of the discharge instructions verbalized by patient. ADDITIONAL INFORMATION Sciatica Sciatica ("Lumbar Radiculopathy") causes a pain that spreads from the lower back down into the buttock, hip and leg. Sometimes leg pain can occur without any back pain. Sciatica is due to irritation or pressure on a spinal nerve as it comes out of the spinal canal. This is most often due to a bulge or rupture of a nearby spinal disk (the cartilage cushion between each spinal bone), which presses on a nearby nerve. Other causes include spinal stenosis (narrowing of the spinal canal) and spasm of the pyriform muscle (a muscle in the buttocks that the sciatic nerve passes through). Sciatica may begin after a sudden twisting/bending force (such as in a car accident), or sometimes after a simple awkward movement. In either case, muscle spasm is commonly present and contributes to the pain. The diagnosis of sciatica is made from the symptoms and physical exam. Unless you had a physical injury (such as a car accident or fall), X-rays are usually not ordered for the initial evaluation of sciatica because the nerves and disks cannot be seen on an x-ray. If signs of a compressed nerve are present (for example, loss of tendon reflex or strength in the leg), an MRI (magnetic resonance imaging) scan will need to be scheduled as an outpatient. Most sciatica (80-90%) gets better with medicine, exercise, physical therapy. If symptoms continue after at least three months of medical treatment, surgery may be considered. Home Care: You may need to stay in bed the first few days. But, as soon as possible, begin sitting or walking to avoid problems with prolonged bed rest. When in bed, try to find a position of comfort. A firm mattress is best. Try lying flat on your back with pillows under your knees. You can also try lying on your side with your knees bent up towards your chest and a pillow between your knees. Avoid prolonged sitting. This puts more stress on the lower back than standing or walking. Some persons find relief with heat (hot shower, hot bath or heating pad) and massage, while others prefer cold packs (crushed or cubed ice in a plastic bag, wrapped in a towel). Try both and use the method that feels best for 20 minutes several times a day. You may use acetaminophen (Tylenol) or ibuprofen (Motrin, Advil) to control pain, unless another pain medicine was prescribed. [ NOTE: If you have chronic liver or kidney disease or ever had a stomach ulcer or GI bleeding, talk with your doctor before using these medicines.] Be aware of safe lifting methods and do not lift anything over 15 pounds until all the pain is gone. Follow Up with your doctor or this facility if your symptoms do not start to improve after one week. Physical therapy or further testing may be needed. [NOTE: If X-rays were taken, they will be reviewed by a radiologist. You will be notified of any new findings that may affect your care.] Get Prompt Medical Attention if any of the following occur: Pain becomes worse, not controlled by the prescribed medicine Weakness or numbness in one or both legs Numbness in the groin, genital area Loss of bowel or bladder control Ibuprofen Oral tablet What is this medicine? IBUPROFEN (eye BYOO proe fen) is a non-steroidal anti-inflammatory drug (NSAID). It is used for dental pain, fever, headaches or migraines, osteoarthritis, rheumatoid arthritis, or painful monthly periods. It can also relieve minor aches and pains caused by a cold, flu, or sore throat. How should I use this medicine? Take this medicine by mouth with a glass of water. Follow the directions on the prescription label. Take this medicine with food if your stomach gets upset. Try to not lie down for at least 10 minutes after you take the medicine. Take your medicine at regular intervals. Do not take your medicine more often than directed. A special MedGuide will be given to you by the pharmacist with each prescription and refill. Be sure to read this information carefully each time. Talk to your commercial art instructor regarding the use of this medicine in children. Special care may be needed. What side effects may I notice from receiving this medicine? Side effects that you should report to your doctor or health pharmacy care coordinator as soon as possible: allergic reactions like skin rash, itching or hives, swelling of the face, lips, or tongue black or bloody stools, blood in the urine or in vomit breathing problems changes in vision chest pain general ill feeling or flu-like symptoms nausea or vomiting redness, blistering, peeling or loosening of the skin, including inside the mouth slurred speech or weakness on one side of the body stomach pain unexplained weight gain or swelling unusually weak or tired yellowing of eyes or skin Side effects that usually do not require medical attention (report to your doctor or health pharmacy care coordinator if they continue or are bothersome): constipation or diarrhea dizziness gas or heartburn stomach upset What may interact with this medicine? Do not take this medicine with any of the following medications: cidofovir ketorolac methotrexate pemetrexed This medicine may also interact with the following medications: alcohol aspirin diuretics lithium other drugs for inflammation like prednisone warfarin What if I miss a dose? If you miss a dose, take it as soon as you can. If it is almost time for your next dose, take only that dose. Do not take double or extra doses. Where should I keep my medicine? Keep out of the reach of children. Store at room temperature between 15 and 30 degrees C (59 and 86 degrees F). Keep container tightly closed. Throw away any unused medicine after the expiration date. What should I tell my health care provider before I take this medicine? They need to know if you have any of these conditions: asthma cigarette smoker drink more than 3 alcohol containing drinks a day heart disease or circulation problems such as heart failure or leg edema (fluid retention) high blood pressure kidney disease liver disease stomach bleeding or ulcers an unusual or allergic reaction to ibuprofen, aspirin, other NSAIDS, other medicines, foods, dyes, or preservatives or trying to get breast-feeding What should I watch for while using this medicine? Tell your doctor or healthcare professional if your symptoms do not start to get better or if they get worse. This medicine does not prevent heart attack or stroke. In fact, this medicine may increase the chance of a heart attack or stroke. The chance may increase with longer use of this medicine and in people who have heart disease. If you take aspirin to prevent heart attack or stroke, talk with your doctor or health pharmacy care coordinator. Do not take other medicines that contain aspirin, ibuprofen, or naproxen with this medicine. Side effects such as stomach upset, nausea, or ulcers may be more likely to occur. Many medicines available without a prescription should not be taken with this medicine. This medicine can cause ulcers and bleeding in the stomach and intestines at any time during treatment. Ulcers and bleeding can happen without warning symptoms and can cause . To reduce your risk, do not smoke cigarettes or drink alcohol while you are taking this medicine. You may get drowsy or dizzy. Do not drive, use machinery, or do anything that needs mental alertness until you know how this medicine affects you. Do not stand or sit up quickly, especially if you are an older patient. This reduces the risk of dizzy or fainting spells. This medicine can cause you to bleed more easily. Try to avoid damage to your teeth and gums when you brush or floss your teeth. Cyclobenzaprine Hydrochloride Oral tablet What is this medicine? CYCLOBENZAPRINE (jennyfer jiang) is a muscle relaxer. It is used to treat muscle pain, spasms, and stiffness. How should I use this medicine? Take this medicine by mouth with a glass of water. Follow the directions on the prescription label. If this medicine upsets your stomach, take it with food or milk. Take your medicine at regular intervals. Do not take it more often than directed. Talk to your commercial art instructor regarding the use of this medicine in children. Special care may be needed. What side effects may I notice from receiving this medicine? Side effects that you should report to your doctor or health pharmacy care coordinator as soon as possible: allergic reactions like skin rash, itching or hives, swelling of the face, lips, or tongue chest pain fast heartbeat hallucinations seizures vomiting Side effects that usually do not require medical attention (report to your doctor or health pharmacy care coordinator if they continue or are bothersome): headache What may interact with this medicine? Do not take this medicine with any of the following medications: cisapride droperidol flecainide grepafloxacin halofantrine levomethadyl MAOIs like Carbex, Eldepryl, Marplan, Nardil, and Parnate nilotinib pimozide probucol sertindole This medicine may also interact with the following medications: abarelix alcohol contrast dyes dolasetron guanethidine medicines for cancer medicines for depression, anxiety, or psychotic disturbances medicines to treat an irregular heartbeat medicines used for sleep or numbness during surgery or procedure methadone octreotide ondansetron palonosetron phenothiazines like chlorpromazine, mesoridazine, prochlorperazine, thioridazine some medicines for infection like alfuzosin, chloroquine, clarithromycin, levofloxacin, mefloquine, pentamidine, troleandomycin tramadol vardenafil What if I miss a dose? If you miss a dose, take it as soon as you can. If it is almost time for your next dose, take only that dose. Do not take double or extra doses. Where should I keep my medicine? Keep out of the reach of children. Store at room temperature between 15 and 30 degrees C (59 and 86 degrees F). Keep container tightly closed. Throw away any unused medicine after the expiration date. What should I tell my health care provider before I take this medicine? They need to know if you have any of these conditions: heart disease, irregular heartbeat, or previous heart attack liver disease thyroid problem an unusual or allergic reaction to cyclobenzaprine, tricyclic antidepressants, lactose, other medicines, foods, dyes, or preservatives or trying to get breast-feeding What should I watch for while using this medicine? Check with your doctor or health pharmacy care coordinator if your condition does not improve within 1 to 3 weeks. You may get drowsy or dizzy when you first start taking the medicine or change doses. Do not drive, use machinery, or do anything that may be dangerous until you know how the medicine affects you. Stand or sit up slowly. Your mouth may get dry. Drinking water, chewing sugarless gum, or sucking on hard candy may help. You have been given the following additional information: Back Pain W/ Sciatica Ibuprofen Oral tablet Cyclobenzaprine Hydrochloride Oral tablet No driving or operating machinery while taking medication. (Electronically signed by Ramsey Freeman MD 11/27/2016 18:17)
--- NOTE | 2016-11-27 18:17 | ED MED RECONCILIATION SUMMARY ---
Patient: ARI SANTANA Medication Reconciliation Report [facility] VisitID: [id number] [address] [place] [address] 26y, F Registration Date/Time: 11/07/2016 Weight: 61.2 kg Height/Length: 63 in. BMI: 23.9 ALLERGIES: None The patient's Home Medications are listed below: THE FOLLOWING MEDICATIONS NEED TO BE RECONCILED: LamoTRIgine Oral (25 mg) 1 tablet, 2 x daily The source(s) of the original Home Medication information: patient The following Medications were given to the patient in the Emergency Department: None. The following Medications were prescribed to the patient: Ibuprofen 600mg tablets: take 1 tablet orally every 8 hours as needed for pain. Dispense thirty (30). No refills. -- Ramsey Freeman MD Flexeril 10 mg: Take 1 orally every 8 hours as needed for muscle spasm. Dispense twenty (20). No refills. Substitution is permissible. -- Ramsey Freeman MD
--- NOTE | 2016-11-27 18:17 | ED MAR SUMMARY ---
..... Medication Administration Record [facility] [address] [place], [place] [id number] Patient: ARI SNATANA Visit ID: [id number] 26y, F Weight: 61.2 kg Height/Length: 63 in BMI: 23.9 ALLERGIES: None
--- NOTE | 2016-11-27 18:17 | ED MED RECONCILIATION SUMMARY ---
Patient: ARI SANTANA Medication Reconciliation Report [facility] VisitID: [id number] [address] [place] [address] 26y, F Registration Date/Time: 11/07/2016 Weight: 61.2 kg Height/Length: 63 in. BMI: 23.9 ALLERGIES: None The patient's Home Medications are listed below: THE FOLLOWING MEDICATIONS NEED TO BE RECONCILED: LamoTRIgine Oral (25 mg) 1 tablet, 2 x daily The source(s) of the original Home Medication information: patient The following Medications were given to the patient in the Emergency Department: None. The following Medications were prescribed to the patient: Ibuprofen 600mg tablets: take 1 tablet orally every 8 hours as needed for pain. Dispense thirty (30). No refills. -- Ramsey Freeman MD Flexeril 10 mg: Take 1 orally every 8 hours as needed for muscle spasm. Dispense twenty (20). No refills. Substitution is permissible. -- Ramsey Freeman MD
--- NOTE | 2016-11-27 18:17 | ED MAR SUMMARY ---
..... Medication Administration Record [facility] [address] [place], [place] [id number] Patient: ARI SANTANA Visit ID: [id number] 26y, F Weight: 61.2 kg Height/Length: 63 in BMI: 23.9 ALLERGIES: None
== END 2016-11-08 01:35 | disposition home or self-care (01) ==
LOC: ED SRH 22:54
DX: M54.41 Lumbago with sciatica, right side (principal)
CPT/HCPCS: 90004; 93070